=== PATIENT | female | born 2000 | race American Indian/Alaskan Native ===

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

== ENCOUNTER 2023-02-20 11:59 | Emergency (ER) | payer OTHER ==
[~2023-02-20] VITALS: Ht 160 cm; Wt 122.9 kg
[2023-02-20] MEDS ORDERED: DOXYCYCLINE HY100 MG PO (14:39)
[2023-02-20 14:54] VITALS: BP 110/69
== END 2023-02-20 14:57 | disposition home or self-care (01) ==
LOC: ED 11:59
DX: S61.411A Laceration without foreign body of right hand, initial encounter (principal); S61.212A Laceration without foreign body of right middle finger without damage to nail, initial encounter; Z23 Encounter for immunization; Z88.0 Allergy status to penicillin; W54.0XXA Bitten by dog, initial encounter
CPT/HCPCS: 90471; 90715; 99283-25

== ENCOUNTER 2024-03-15 02:36 | Emergency (ER) | payer OTHER ==
[~2024-03-15] VITALS: Ht 160 cm; Wt 118.0 kg
[~2024-03-15 02:36] MED LIST changes: +DOXYCYCLINE HY100 MG PO
[2024-03-15] MEDS ORDERED: LOMAIRA8 MG (02:43)
[2024-03-15] MEDS ORDERED: IBU600 MG (02:44)
[2024-03-15] MEDS ORDERED: IBU400 MG (02:44)
[2024-03-15] MEDS ORDERED: diphenhydrAMINE HCL 50 MG/ML VIAL IV ONE (03:00)
[2024-03-15] MEDS ORDERED: METOCLOPRAMIDE HCL 10 MG/2 ML SDV IV ONE (03:00)
[2024-03-15] MEDS ORDERED: SODIUM CHLORIDE 0.9% 1,000 ML IV ONE (03:00)
[2024-03-15] MEDS ORDERED: KETOROLAC TROMETHAMINE 30 MG/ML VIAL IV ONE (03:00)
[2024-03-15] MEDS ORDERED: SUMAtriptan succinate 6 MG/0.5 ML VIAL SUB-Q ONE (03:00)
[2024-03-15] MEDS ORDERED: IMITREX25 MG PO (03:55)
[2024-03-15] MEDS ORDERED: PROMETHAZINE HC25 M1 PO (03:55)
[2024-03-15 04:08] VITALS: BP 134/88
== END 2024-03-15 04:14 | disposition home or self-care (01) ==
LOC: ED 02:36
DX: G43.909 Migraine, unspecified, not intractable, without status migrainosus (principal)
CPT/HCPCS: 96374; 96375; 99283-25; J1200; J1885; J2765; J3030; J7030